=== PATIENT | female | born 1980 | race African-American/Black ===

== ENCOUNTER 2016-10-22 18:37 | Emergency (ER) | payer MEDICAID ==
[~2016-10-22] VITALS: Ht 175.3 cm; Wt 143.0 kg
[~2016-10-22 18:37] MED LIST: CEPH-569; INDOMETHACIN; SILVER SULFADIAZINE
[2016-10-22] MEDS ORDERED: MORPHINE SULFATE 10 MG/ML CPJ IM ONE (22:45)
[2016-10-22] MEDS ORDERED: BACITRACIN ZINC OINT UDPKT TOP ONE (23:15)
[2016-10-22 23:37] VITALS: BP 136/74
== END 2016-10-23 00:25 | disposition home or self-care (01) ==
LOC: ER 21:48
DX: L02.31 Cutaneous abscess of buttock (principal); F17.210 Nicotine dependence, cigarettes, uncomplicated; Z79.899 Other long term (current) drug therapy
CPT/HCPCS: 81025; 96372; 99283; J2270

== ENCOUNTER 2017-04-01 08:48 | Emergency (ER) | payer MEDICAID ==
[~2017-04-01] VITALS: Ht 175.3 cm; Wt 155.0 kg
[2017-04-01 11:16] VITALS: BP 120/60
== END 2017-04-01 13:23 | disposition home or self-care (01) ==
LOC: ER 09:37
DX: L02.215 Cutaneous abscess of perineum (principal); F17.200 Nicotine dependence, unspecified, uncomplicated
CPT/HCPCS: 99283; Z7610

== ENCOUNTER 2017-09-14 14:02 | Emergency (ER) | payer MEDICAID ==
[~2017-09-14] VITALS: Ht 175.3 cm; Wt 151.0 kg
[2017-09-14] MEDS ORDERED: ACETAMINOPHEN 325MG TABLET ONE (14:55)
[2017-09-14] MEDS ORDERED: ACETAMINOPHEN 325MG TABLET PO ONE (15:00)
[2017-09-14] MEDS ORDERED: KETOROLAC 30MG/ML VIAL IM ONE (16:45)
[2017-09-14 18:06] VITALS: BP 143/77
== END 2017-09-14 18:10 | disposition home or self-care (01) ==
LOC: ER 15:37
DX: M17.11 Unilateral primary osteoarthritis, right knee (principal)
CPT/HCPCS: 73562; 81025; 96372; 99284; J1885

== ENCOUNTER 2017-12-23 15:13 | Emergency (ER) | payer MEDICAID ==
[~2017-12-23] VITALS: Ht 175.3 cm; Wt 170.0 kg
[2017-12-23] MEDS ORDERED: AMLO2.5T45 PO (16:47)
[2017-12-23 18:40] VITALS: BP 148/80
== END 2017-12-23 18:42 | disposition home or self-care (01) ==
LOC: ER 15:13
DX: O10.912 Unspecified pre-existing hypertension complicating pregnancy, second trimester (principal); L02.211 Cutaneous abscess of abdominal wall; L03.311 Cellulitis of abdominal wall; Z3A.18 18 weeks gestation of pregnancy; Z98.890 Other specified postprocedural states
CPT/HCPCS: 99283

== ENCOUNTER 2018-02-08 09:15 | Observation (INO) | payer MEDICAID ==
[~2018-02-08] VITALS: Ht 175.3 cm; Wt 174.2 kg
[~2018-02-08 09:15] MED LIST changes: +AMLO2.5T45 PO
[2018-02-08] MEDS ORDERED: AMLO-375 MT (10:36)
[2018-02-08] MEDS ORDERED: PREN1TAB78 MT (10:38)
[2018-02-08] MEDS ORDERED: ASPI-1159 MT (10:38)
[2018-02-08] MEDS ORDERED: FOLI-43 MT (10:38)
== END 2018-02-08 10:40 | disposition home or self-care (01) ==
LOC: L&D 09:15
PROVIDERS: ADMIT Obstetrics & Gynecology; ATTEND Obstetrics & Gynecology
DX: O26.892 Other specified pregnancy related conditions, second trimester (principal); O09.522 Supervision of elderly multigravida, second trimester; R10.31 Right lower quadrant pain; M54.5 Low back pain; Z3A.23 23 weeks gestation of pregnancy
CPT/HCPCS: 99281; G0378

== ENCOUNTER 2018-05-30 06:41 | Emergency (ER) | payer MEDICAID ==
[~2018-05-30] VITALS: Ht 175.3 cm; Wt 177.0 kg
[~2018-05-30 06:41] MED LIST changes: +AMLO-375 MT; +ASPI-1159 MT; -CEPH-569; +FOLI-43 MT; -INDOMETHACIN; +PREN1TAB78 MT
[2018-05-30 07:35] LABS: CLARITY URINE CLEAR (CLEAR); COLOR URINE YELLOW (YELLOW); KETONES URINE NEGATIVE (NEGATIVE); LEUKOCYTE ESTERASE URINE NEGATIVE (NEGATIVE); NITRITE URINE NEGATIVE (NEGATIVE); OCCULT BLOOD URINE TRACE (NEGATIVE); PH URINE 6.5 (4.5-8.0); PROTEIN URINE NEGATIVE (NEGATIVE); SPECIFIC GRAVITY URINE 1.013 (1.005-1.030); UROBILINOGEN URINE 0.2 E.U./dL (0.2-1.0)
[2018-05-30] MEDS ORDERED: KETOROLAC 30MG/ML VIAL IM ONE (10:30)
[2018-05-30] MEDS ORDERED: DIAZEPAM 5 MG TABLET PO ONE (10:30)
[2018-05-30] MEDS ORDERED: SODIUM CHLORIDE 0.9% 1,000 ML IV ONE (10:31)
[2018-05-30 11:08] LABS: BASOPHILS % 0.7 % (0.0-2.0); HEMATOCRIT. 40.6 % (36.0-48.0); HEMOGLOBIN. 13.7 g/dL (12.0-16.0); LYMPHOCYTES % 38.6 % (20.0-50.0); MEAN CORPUSCULAR HEMOGLOBIN 30.9 pg (28.0-32.0); MEAN CORPUSCULAR VOLUME 91.7 fL (81.0-99.0); MEAN PLATELET VOLUME 7.6 fl (7.4-10.4); MONOCYTES % 4.4 % (2.0-8.0); NEUTROPHILS % 49.3 % (40.0-76.0); PLATELET 313 x1000/uL (130-400); RED BLOOD CELL COUNT 4.42 mill/uL (4.2-5.4); RED CELL DISTRIBUTION WIDTH 14.6 % (11.6-14.6)
[2018-05-30 11:14] LABS: CHLORIDE 104 mEq/L (98-107)
[2018-05-30 11:16] LABS: PROTHROMBIN TIME 10.4 sec (9.1-11.1)
[2018-05-30 11:19] LABS: ETHANOL BLOOD < 10 mg/dL
[2018-05-30] MEDS ORDERED: KETOROLAC 30MG/ML VIAL IV ONE (11:30)
[2018-05-30 11:35] LABS: B-HCG QUANTITATIVE 2 mIU/mL (<3)
[2018-05-30 12:30] VITALS: BP 145/80
== END 2018-05-30 13:12 | disposition home or self-care (01) ==
LOC: ER 09:17
DX: M54.16 Radiculopathy, lumbar region (principal); N39.0 Urinary tract infection, site not specified; D21.9 Benign neoplasm of connective and other soft tissue, unspecified; Z98.890 Other specified postprocedural states; Z79.899 Other long term (current) drug therapy
CPT/HCPCS: 36415; 74176; 80053; 81003; 81025; 83690; 84484; 84702; 85025; 85610; 93970; 96374; 99284; G0482; J1885; J7030